=== PATIENT | female | born 2000 | race Caucasian/White ===

== ENCOUNTER 2020-12-25 01:57 | Emergency (ER) | payer OTHER, MEDICAID, SELFPAY ==
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
[2020-12-25 02:07] VITALS: BP 122/77; PULSE 96; RESP 18; TEMP 37.1; O2SAT 100; BMI 28.3
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
[2020-12-25 03:00] LABS: MANUAL DIFF FLAG NO
[2020-12-25 03:02] LABS: Basophils Percent Auto 0.4 % (0-2); Eosinophils Absolute Auto 0.1 X10*3/uL (0.0-0.4); Eosinophils Percent Auto 1.3 % (0-4); Hematocrit 37.1 % (37-47); Hemoglobin 12.2 g/dl (12.0-16.0); Imm Gran Abs Auto 0.02 X10*3/uL (0.00-0.03); Imm Gran Pct Auto 0.2 % (0.0-0.4); Lymphocytes Absolute Auto 1.4 X10*3/uL (1.2-4.9); Lymphocytes Percent Auto 16.3 % (20-40); Mean Corpuscular HGB Conc 32.9 g/dl (31.0-35.0); Mean Corpuscular Hemoglobin 27.5 pg (27.0-33.0); Mean Corpuscular Volume 83.6 fL (80-98); Mean Platelet Volume 10.7 fL (9.4-12.3); Monocytes Absolute Auto 0.7 X10*3/uL (0.1-1.2); Monocytes Percent Auto 8.4 % (2-11); Neutrophils Absolute Auto 6.1 X10*3/uL (2.0-8.3); Neutrophils Percent Auto 73.4 % (45-73); Platelet Count 227 X10*3/uL (160-400); Red Blood Count 4.44 X10*6/uL (4.20-5.50); Red Cell Distribution Width 12.8 % (11.0-16.0); White Blood Count 8.3 X10*3/uL (4.8-10.8)
[2020-12-25 03:26] LABS: Anion Gap 13 (12-20); Blood Urea Nitrogen 15 mg/dL (9-16); Carbon Dioxide 21 mmol/L (22-29); Chloride 110 mmol/L (96-108); Creatinine Clr Calc Pharmacy 102.6; Estimated Glomerular Filt Rate > 60; Glucose Random 89 mg/dL (60-115); Potassium 3.7 mmol/L (3.3-5.1); Sodium 140 mmol/L (135-145)
[2020-12-25 03:33] LABS: HCG Quantitative < 2 mIU/mL
[2020-12-25] MEDS: iohexoL 350 MG/ML 100 ML INFUS..BTL IV (04:50)
[2020-12-25] MEDS: Ketorolac Tromethamine 30 MG/ML VIAL IVPUSH (05:54)
== END 2020-12-25 05:59 | disposition home or self-care (01) ==
PROVIDERS: Emergency Provider Emergency Medicine
DX: S30.1XXA Contusion of abdominal wall, initial encounter (principal); V47.6XXA Car passenger injured in collision with fixed or stationary object in traffic accident, initial encounter; G89.11 Acute pain due to trauma; M25.511 Pain in right shoulder; M54.2 Cervicalgia; Y93.89 Activity, other specified; Y92.414 Local residential or business street as the place of occurrence of the external cause; Y99.9 Unspecified external cause status
CPT/HCPCS: 36415; 70450; 71260; 72125; 73030; 74177; 80048; 84702; 85025; 96374; 99284; J1885; Q9967

== ENCOUNTER 2022-05-09 14:29 | Emergency (ER) | payer MEDICAID, SELFPAY ==
[2022-05-09 14:57] VITALS: BP 117/79; PULSE 74; RESP 16; TEMP 37.1; O2SAT 100; BMI 27.3
[2022-05-09 15:21] LABS: UPreg QC Valid YES; Urine Pregnancy POSITIVE (NEGATIVE)
[2022-05-09 15:26] LABS: Appearance Urine Cloudy; Color Urine Yellow; Glucose Urine UA Negative (Negative); Leukocyte Esterase Urine Trace (Negative); Nitrite Urine Positive (Negative); Specific Gravity - Urine >= 1.030 (1.005-1.025); Urine Blood Negative (Negative); Urine Ketones >=160 mg/dL (Negative); Urine Protein 30 (1+) mg/dL (Neg-Trace)
[2022-05-09 15:32] LABS: COVID-19 Test Negative (Negative); IDNOW Serial# 9DB6401D
[2022-05-09 15:41] LABS: IDNOW Serial# 16C4AD1C; Influenza A Negative (Negative)
[2022-05-09 15:42] LABS: Influenza B2 Negative (Negative)
[2022-05-09 15:49] LABS: Bacteria Urine 4+ (None Seen); RBC Urine 0-2 /HPF (0-2); Squamous Epithelial Cell Urine >20 /HPF (0-2); UACC Culture Trigger YES; WBC Urine 0-5 /HPF (0-5)
--- NOTE | 2022-05-09 16:42 | ED_ITS ---
HPI - Nausea/Vomiting/Diarrhea General Chief complaint: Nausea/Vomiting/Diarrhea Stated complaint: body aches Time Seen by Provider: 05/09/22 16:34 Source: patient Mode of arrival: ambulatory Limitations: no limitations History of Present Illness HPI Narrative: Patient presents emergency department for evaluation of lower back pain radiating to the bilateral legs as well as vomiting for 1 week. Denies fevers, chills, chest pain, palpitations, shortness of breath, difficulty breathing, abdominal pain, dysuria, urinary frequency/urgency/hesitancy hematuria. Denies precipitating injury. Reports last menstrual period 03/14/2022, states she has taken 2 home tests which have been negative. Related Data Previous Rx's Medication Instructions Recorded cyclobenzaprine 5 mg tablet 5 mg PO TID #10 tabs 12/25/20 tramadol 50 mg tablet 50 mg PO BID PRN pain #7 tabs 12/25/20 cephalexin 500 mg capsule 500 mg PO Q12H 7 days #14 caps 05/09/22 vits no.130-ferrous fum 1 tab PO DAILY #30 tabs 05/09/22 27 mg iron-folic acid 800 mcg tablet ( Vitamin) Allergies Allergy/AdvReac Type Severity Reaction Status Date / Time acetaminophen [From MIDOL] Allergy Unknown HIVES Unverified 05/14/20 17:14 ibuprofen [From MOTRIN] Allergy Unknown HIVES Unverified 05/14/20 17:14 pamabrom [From MIDOL] Allergy Unknown HIVES Unverified 05/14/20 17:14 pyrilamine [From MIDOL] Allergy Unknown HIVES Unverified 05/14/20 17:14 Review of Systems Review of Systems: Constitutional : No Weight loss, No Fever, No Chills ENT/Mouth :? No sore throat, No Rhinorrhea Eyes: No Swelling, No Redness Cardiovascular : No Chest Pain, No SOB, No Edema Respiratory : No Cough, No Sputum, No Wheezing Gastrointestinal : Positive Nausea, Positive Vomiting, no Diarrhea, no abdominal pain, No Hematochezia, No Melena Genitourinary : No Dysuria, No Urinary Frequency, No Hematuria, No Urgency? Musculoskeletal : No joint pain, No Myalgias, No Joint Swelling. Positive back pain Skin : No Skin Lesions, No rash Neuro : No Weakness, No Numbness, No Dizziness, No Headache Psych : No Anxiety/Panic, No Depression Heme/Lymph: No Bruising, No Lymphadenopathy Endocrine : No Polyuria, No Polydipsia PMF Past Medical History Attestation statement: The following information was validated with the patient. Source: old records reviewed Medical History Asthma Social History Social History Alcohol intake: never Advance Directives: No Advance Directives Information Provided: No Physical Exam Vital Signs: Vital Signs: Last Vital Signs Temp 98.8 F 05/09/22 14:57 Pulse 74 05/09/22 14:57 Resp 16 05/09/22 14:57 BP 117/79 05/09/22 14:57 Pulse Ox 100 05/09/22 14:57 O2 Del Method 05/09/22 14:57 BMI result Body Mass Index 27.3 Appearance: Alert.?Oriented to person, place and time. No acute distress.?Normal affect. Eyes: Pupils equal, round and reactive to light.? ENT: Pharynx normal.?? Neck: Normal inspection.? Neck supple.?? CVS: Heart sounds normal. Normal heart rate and rhythm.? Pulses normal.?? Respiratory: No respiratory distress.? Lung sounds clear to auscultation bilat erally?? Abdomen: Soft and non-tender. Normoactive bowel sounds. ??No CVA tenderness Skin: Skin warm and dry.? Normal skin color.? Extremities: No lower extremity edema.? Neuro: Moves all extremities spontaneously. Sensation intact bilaterally. No motor deficits Ambulates with normal steady gait. Course Course Course Narrative: Patient is a 22-year-old female with a past medical history of asthma who presents emergency department for evaluation of vomiting, lower back pain. She is overall well-appearing. Tolerating p.o. intake at the time of examination. Vital signs are stable. Abdominal exam is benign. The urinalysis obtained from triage reveals positive nitrates, trace leukocyte esterase, and presence of bacteria, asymptomatic of urinary tract infection, urine test is additionally positive. Last menstrual period 03/14/2022 approximate gestation 7- 8 weeks, with estimated due date 12/20/2022, . Given , will treat asymptomatic bacteriuria cephalexin. Discussed vitamin B6 or Unisom for associated nausea/vomiting, in addition to vitamin. Advised outpatient follow-up with OB. Review worsening signs and symptoms to return back to emergency department for. All questions were answered, patient was discharged home in stable condition. MDM - Nausea/Vomiting/Diarrhea Lab Data Labs: Lab Results 05/09/22 05/09/22 05/09/22 Range/Units 15:08 15:08 15:09 Urine Color Yellow Urine Appearance Cloudy Urine pH 6.0 (5.0-9.0) Ur Specific [place] >= 1.030 H (1.005-1.025) Urine Protein 30 (1+) H (Neg-Trace) mg/dL Urine Glucose (UA) Negative (Negative) mg/dL Urine Ketones >=160 (Negative) mg/dL Urine Blood Negative (Negative) Urine Nitrite Positive H (Negative) Ur Leukocyte Esterase Trace H (Negative) Urine RBC 0-2 (0-2) /HPF Urine WBC 0-5 (0-5) /HPF Ur Squamous Epith Cells >20 (0-2) /HPF Urine Bacteria 4+ (None Seen) Hyaline Casts 3-5 (0-2) /LPF Urine Test (NEGATIVE) COVID-19 (LOBO) Negative (Negative) COVID-19 Valderm Com See Note Influenza Type A (TAYLOR) Negative (Negative) Influenza Type B (TAYLOR) Negative (Negative) Influenza A & B Note See Note 05/09/22 Range/Units 15:09 Urine Color Urine Appearance Urine pH (5.0-9.0) Ur Specific [place] (1.005-1.025) Urine Protein (Neg-Trace) mg/dL Urine Glucose (UA) (Negative) mg/dL Urine Ketones (Negative) mg/dL Urine Blood (Negative) Urine Nitrite (Negative) Ur Leukocyte Esterase (Negative) Urine RBC (0-2) /HPF Urine WBC (0-5) /HPF Ur Squamous Epith Cells (0-2) /HPF Urine Bacteria (None Seen) Hyaline Casts (0-2) /LPF Urine Test POSITIVE H (NEGATIVE) COVID-19 (LOBO) (Negative) COVID-19 Valderm Com Influenza Type A (TAYLOR) (Negative) Influenza Type B (TAYLOR) (Negative) Influenza A & B Note Discharge Plan Discharge Clinical Impression: Vomiting Qualifiers: Vomiting type: unspecified Patient Disposition: Home, Self-Care Instructions: (ED), at 7 to 10 Weeks (ED) Additional Instructions: Your COVID-19 testing today was negative. As we discussed, your test today was positive. You reported that your last menstrual period was March 14, meaning you are approximately 7-8 weeks , with your estimated due date 12/20/2022. Your urine sample shows evidence of urinary tract infection with presence of bacteria. Therefore you have been given a prescription for an antibiotic, cephalexin, to take twice daily for 7 days. For the nausea and vomiting you may trial vitamin B6 25 mg 3 times daily or Unisom in the evening. You will need to contact your OB for further follow-up and treatment. Return to emergency department with any new or worsening symptoms or concerns. Prescriptions: New cephalexin 500 mg capsule 500 mg PO Q12H 7 Days Qty: 14 0RF Vitamin 27 mg iron- 800 mcg tablet 1 tab PO DAILY Qty: 30 0RF No Action cyclobenzaprine 5 mg tablet 5 mg PO TID Qty: 10 0RF tramadol 50 mg tablet 50 mg PO BID PRN (Reason: pain) Qty: 7 0RF Interventions: ED Discharge Assessment Last Done: 05/09/22 17:22 Discharge Date/Time: 05/09/22 17:23
== END 2022-05-09 17:23 | disposition home or self-care (01) ==
PROVIDERS: Emergency Provider Internal Medicine
DX: O23.41 Unspecified infection of urinary tract in pregnancy, first trimester (principal); N39.0 Urinary tract infection, site not specified; O21.9 Vomiting of pregnancy, unspecified; Z3A.01 Less than 8 weeks gestation of pregnancy; Z20.822 Contact with and (suspected) exposure to COVID-19
CPT/HCPCS: 81001; 81025; 87086; 87502; 87635; 99282; 99283

== ENCOUNTER → 2022-05-10 11:23 | Outpatient (BNVA) | payer MEDICAID, SELFPAY | PROVIDERS: Visit Provider Advanced Practice Midwife | DX: O21.9 Vomiting of pregnancy, unspecified (principal); O23.41 Unspecified infection of urinary tract in pregnancy, first trimester; N39.0 Urinary tract infection, site not specified; Z3A.01 Less than 8 weeks gestation of pregnancy | CPT/HCPCS: 99212 ==

== ENCOUNTER 2024-12-31 14:52 | Outpatient (AMB) | payer MEDICAID, SELFPAY ==
--- NOTE | 2024-12-31 14:52 | A.OFFVIS_ITS ---
Vital Signs 12/31/24 14:58 Height 5 ft Weight 162 lb BMI 31.6 BP 116/72 Intake Visit Reasons: Amenorrhea Educational Technology Coordinator: Educational Technology Coordinator Present (Bettye) Accompanied by: Self / Same As Patient Allergies acetaminophen [From MIDOL] Allergy (Unknown, Verified 12/31/24 14:56) HIVES ibuprofen [From MOTRIN] Allergy (Unknown, Verified 12/31/24 14:56) HIVES pamabrom [From MIDOL] Allergy (Unknown, Verified 12/31/24 14:56) HIVES pyrilamine [From MIDOL] Allergy (Unknown, Verified 12/31/24 14:56) HIVES Medication List - Last Reconciled 12/31/24 by Alessandra Singh CNM No Known Home Meds Is last menstrual period known: Yes Last menstrual period: 11/19/24 Post menopausal: No Patient : No HPI HPI Amenorrhea: Details: Patient is here because she missed her last. It was supposed to start on the by her recommending and it did not her last menstrual period was November 19. When she missed her. She did 2 home tests and they were both weekly positive [facility] are test was negative. She requested a blood test but was declined and so she called and made an appointment here hoping she could get a blood test to check for . The only time she was seen by this provider in the past was in 2021 when she had an unplanned and [facility]. She was working and lost her insurance so she did not receive any healthcare since she had her with her daughter who is now 4-1/2 years old. She is in a new relationship this time with a new partner for the last year and a half and thinks things would be better so if she gets it would be okay if she turns out not to be she would like to start on some method of control she was thinking of maybe the IUD she got on the pills before but then again that was before she had her daughter and so she is older now and thinks she might do better. She does not feel nauseous or anything so she is not really sure if she is but she just wants to find out. She had her daughter at [facility]. She said she was induced at 36 weeks because she had cholestasis. [facility] Medical History Asthma Surgical History H/O removal of cyst Hx of cholecystectomy Family History Mother Endometriosis Social History Alcohol intake: never Female Reproductive History Menstrual Age of Menarche: 12 Duration of menses: 3-5 days Date of last menstrual period: 11/19/24 control method: none Total pregnancies: 2 Full term: 1 Ab induced: 1 Physical Exam Vital Signs: Last Vital Signs BP 116/72 12/31/24 14:58 BMI result Body Mass Index 31.6 Results Reviewed Results Reviewed: test done in the office is negative. Assessment & Plan Assessment & Plan (1) Late menses: Comment: lmp 11/19/24, Had weakly positive preg tests at home, followed by negative at [facility], and here.-we will get serum HCG. Rx for OCPs given if negative and for when menses come Code(s): N92.6 - Irregular menstruation, unspecified Category: Medical Plan Reviewed what she would do if the test were positive versus if it was negative. At this point if it were positive she would continue the . If she is not she would like to start on control. She thinks she might do better with an IUD. She has not ever had a Pap smear or regular obstetrician/gynecologist exam she went straight from care to no obstetrician/gynecologist care. The last primary care person she had was Dr. 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 She brings her daughter to [facility] for care. She was without health insurance and she went to the hospital and they helped her signed up for Medicaid yesterday. She has anxiety and connected up with a therapist that she was close with when she was in high school through the school program, and she does speak to her, but not officially but now that she has health insurance she will be able to. The test done here in the office is negative. Based on this I am ordering her a serum HCG at her request just to be sure. If the test is positive serologically then we will probably repeat the test in 2 days to see if the level is going up or down.. She is not having any pain or spotting or any signs or symptoms that would be worrisome more indicative of an ectopic If the test is negative she would like to start on control pills I told her that she would need to wait till her period does start. I explained to her exactly how to take the pills 1 pill every day starting at the top left corner the pill pack and did not miss any days and that she would expect a period at the end of the pill pack. 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 I asked her to call the office tomorrow to review the results of the test.. She does not smoke cigarettes but she does smoke weed and I discussed the health concerns of both. I reviewed warning signs of developing thrombo embolic events. She denies any other contraindications to OCPs We will schedule an annual exam with control review as well. HCG now, if positive will need repeat in 2 day Patient to call RN tomorrow morning for results Schedule annual exam and control visit Orders: Orders HCG Quantitative Today N92.6 - Irregular menstruation, unspecified Medications: New desog-e.estradiol/e.estradiol 0.15-0.02 mgx21 /0.01 mg x 5 Start at the beginning of your next period. 1 tab PO DAILY 84 tabs 4RF Coding Level of Care Code Est Pt Level 3 (40521) Diagnoses Late menses N92.6
[2024-12-31 14:58] VITALS: BP 116/72; BMI 31.6
--- OUTSIDE RECORDS SUMMARY | 2024-12-31 16:05 | XMS_ITS | Clinical Summary ---
Author Organization [employer] [facility] it Address [address] [place] [address] Care Team Providers Care Licensed Vocational Nurse Name Role Phone Unavailable Primary Care Provider Unavailabl e Surgical History Surgery Date Site/Laterality Comments OTHER SURGICAL HISTORY 2015 PROCEDURE: ---- OTHER ----; COMMENT: cyst on hand Medical History Medical History Date Comments B12 deficiency 02/11/2020 DX:B12 deficienc y Asthma 02/11/2020 DX:Asthma Family History Medical History Relation Name Comments No Known Problems Brother No Known Problems Father No Known Problems Mother No Known Problems Sister Relation Name Status Comments Brother Alive Father Alive Maternal Grandfather Alive Maternal Grandmother Alive Mother Alive Paternal Grandfather Paternal Grandmother Alive Sister Alive Social History Tobacco Use Types Packs/Day Years Used Date Smoking Tobacco: Never Smokeless Tobacco: Never Alcohol Use Standard Drinks/Week Comments No 0 (1 standard drink = 0.6 oz pur e alcohol) Comments Unknown Sex and Gender Information Value Date Recorded Sex Assigned at Not on file Legal Sex Female 9:05 AM EST Gender Identity Not on file Sexual Orientation Not on file Obstetrics History Plan of Treatment Health Maintenance Due Date Last Done Comments Gonorrhea/Chlamydia Screening 2000 HPV Vaccines (1 - 3-dose series) 2015 DTaP,Tdap,and Td Vaccines (1 - Tdap) 2019 Hepatitis B Vaccines (1 of 3 - 19+ 3-dose series) 2019 Cervical Cancer Screening: P ap Smear 2021 COVID-19 Vaccine (2023-2 5 season) 2024 Influenza Vaccine (Season Ended) 2025 HIB Vaccines Aged Out No longer eligi ble based on patient's age to complete this topic Hepatitis A Vaccines Aged Out No long er eligible based on patient's age to complete this topic IPV Vaccines Aged Out No longer eligi ble based on patient's age to complete this topic MMR Vaccines Aged Out No longer eligi ble based on patient's age to complete this topic Meningococcal ACWY Vaccine Aged Out N o longer eligible based on patient's age to complete this topic Meningococcal B Vaccine Aged Out No l onger eligible based on patient's age to complete this topic Pneumococcal Vaccine: Pediat rics (0 to 5 Years) and At-Risk Patients (6 to 64 Years) Aged Out No longer eligible b ased on patient's age to complete this topic RSV Immunization Patients Un garcia 20 months Aged Out No longer eligible b ased on patient's age to complete this topic Varicella Vaccines Aged Out No longer eligible based on patient's age to complete this topic
== END 2025-01-01 08:12 | disposition home or self-care (01) ==
LOC: HO.HWSM 14:52
PROVIDERS: Visit Provider Advanced Practice Midwife
DX: N92.6 Irregular menstruation, unspecified (principal)
CPT/HCPCS: 99213

== ENCOUNTER 2024-12-31 15:39 | Outpatient (REF) | payer MEDICAID, SELFPAY ==
--- OUTSIDE RECORDS SUMMARY | 2024-12-31 16:45 | XMS_ITS | Clinical Summary ---
Author Organization [employer] [facility] it Address [address] [place] [address] Care Team Providers Care Behavioral Therapist Name Role Phone Unavailable Primary Care Provider [...]
[2024-12-31 18:27] LABS: HCG Quantitative < 2 mIU/mL
== END 2024-12-31 15:40 | disposition home or self-care (01) ==
LOC: HO.HHCL 15:39
PROVIDERS: Visit Provider Advanced Practice Midwife
DX: N92.6 Irregular menstruation, unspecified (principal)
CPT/HCPCS: 36415; 84702; 99212